=== PATIENT | female | born 1965 | race Two or more races ===

== ENCOUNTER 2020-01-14 09:42 | Outpatient (CLI) | payer OTHER | END 2020-01-14 17:16 | disposition home or self-care (01) | LOC: OFIC 805 09:42 | PROVIDERS: ATTEND Otolaryngology | DX: K11.20 Sialoadenitis, unspecified (principal); R42 Dizziness and giddiness; H93.13 Tinnitus, bilateral; H61.23 Impacted cerumen, bilateral ==